=== PATIENT | male | born 1995 | race Caucasian/White ===

== ENCOUNTER → 2016-08-29 | Outpatient (CLI) | payer BC | END | disposition home or self-care (01) | LOC: MW.RT 13:33 | CPT/HCPCS: 93270 ==

== ENCOUNTER 2017-01-11 12:43 | Emergency (ER) | payer BC ==
--- NOTE | 2017-01-11 12:47 | EDM.PDOC ---
ED HPI GENERAL MEDICAL PROBLEM - General Stated Complaint: COUGH Time Seen by Provider: 01/11/17 12:47 Source of Information: Reports: Patient - History of Present Illness INITIAL COMMENTS - FREE TEXT/NARRATIVE: HISTORY AND PHYSICAL: History of present illness: [] Patient has coughed for 2 days on awakening this morning he did have some trace blood in some phlegm/sputum, I blood noted in the nares. He had bloody nose while sleeping as a source from where the blood. Patient also sore throat for last 4 days No fever nausea vomiting chills sweats, no hot potato voice drooling or trismus Review of systems: As per history of present illness and below otherwise all systems reviewed and negative. Past medical history: As per history of present illness and as reviewed below otherwise noncontributory. Surgical history: As per history of present illness and as reviewed below otherwise noncontributory. Social history: No reported history of drug or alcohol abuse. Family history: As per history of present illness and as reviewed below otherwise noncontributory. Physical exam: HEENT: Atraumatic, normocephalic, pupils reactive, negative for conjunctival pallor or scleral icterus, mucous membranes moist, throat clear, neck supple, nontender, trachea midline. Moderate erythema no exudate Lungs: Clear to auscultation, breath sounds equal bilaterally, chest nontender. Heart: S1S2, regular, negative for clicks, rubs, or JVD. Abdomen: Soft, nondistended, nontender. Negative for masses or hepatosplenomegaly. Negative for costovertebral tenderness. Pelvis: Stable nontender. Genitourinary: Deferred. Rectal: Deferred. Extremities: Atraumatic, negative for cords or calf pain. Neurovascular unremarkable. Neuro: Awake, alert, oriented. Cranial nerves II through XII unremarkable. Cerebellum unremarkable. Motor and sensory unremarkable throughout. Exam nonfocal. Diagnostics: [] Chest x-ray Therapeutics: [] Z-Mina Impression: [] Acute bronchitis Acute pharyngitis Definitive disposition and diagnosis as appropriate pending reevaluation and review of above. Generalized Pain Score (Numeric/FACES): 4 - Related Data Allergies Allergy/AdvReac Type Severity Reaction Status Date / Time No Known Allergies Allergy Verified 01/11/17 12:51 Home Meds: Home Meds . [No Known Home Meds] 01/11/17 [History] ED ROS GENERAL - Review of Systems Review Of Systems: ROS reveals no pertinent complaints other than HPI. ED EXAM, GENERAL - Physical Exam Exam: See Below Course - Vital Signs Last Recorded V/S: Last Vital Signs Temp 36.8 C 01/11/17 12:48 Pulse 75 01/11/17 12:48 Resp 16 01/11/17 12:48 BP 152/80 H 01/11/17 12:48 Pulse Ox 98 01/11/17 12:48 - Orders/Labs/Meds Orders: Active Orders 24 hr Category Date Time Status Chest 2V [CR] Stat Exams 01/11/17 12:49 Taken Departure - Departure Time of Disposition: 13:23 Disposition: Home, Self-Care 01 Condition: good Clinical Impression: Acute bronchitis, Pharyngitis - Discharge Information Additional Instructions: Medication as prescribed Return if symptoms persist or worsen followup with primary care as needed The following information is given to patients seen in the emergency department who are being discharged to home. This information is to outline your options for follow-up care. We provide all patients seen in our emergency department with a follow-up referral. The need for follow-up, as well as the timing and circumstances, are variable depending upon the specifics of your emergency department visit. If you don't have a primary care physician on staff, we will provide you with a referral. We always advise you to contact your personal physician following an emergency department visit to inform them of the circumstance of the visit and for follow-up with them and/or the need for any referrals to a consulting specialist. The emergency department will also refer you to a specialist when appropriate. This referral assures that you have the opportunity for follow-up care with a specialist. All of these measure are taken in an effort to provide you with optimal care, which includes your follow-up. Under all circumstances we always encourage you to contact your private physician who remains a resource for coordinating your care. When calling for follow-up care, please make the office aware that this follow-up is from your recent emergency room visit. If for any reason you are refused follow-up, please contact the [facility] emergency department at and asked to speak to the emergency department charge nurse. - My Orders Last 24 Hours: My Active Orders 01/11/17 12:49 Chest 2V [CR] Stat - Assessment/Plan Last 24 Hours: My Active Orders 01/11/17 12:49 Chest 2V [CR] Stat
[2017-01-11 13:31] VITALS: BP 153/71
--- NOTE | 2017-01-14 11:12 | CR ---
EXAM DATE: 01/11/17 PATIENT'S AGE: 21 Patient: RADHA WANG Facility: [place], [place] Site . Site : 1995 Study: XRay Chest [id number]/27/2017 1:02:08 PM Ordering Physician: Doctor Menon Final Report: HISTORY: Cough for 3 days. Findings: Two views of the chest or provided. The lungs are normally expanded and clear. No pleural effusion or pneumothorax is seen. Cardiac silhouette size is within normal limits. Impression: Clear lungs. Dictated by Gurdeep Mayorga MD @ Jan 11 2017 1:11PM (Electronic Signature) Report Signed by Proxy. ASHLEY
== END 2017-01-11 13:30 | disposition home or self-care (01) ==
LOC: MW.ED 12:43
DX: J20.9 Acute bronchitis, unspecified (principal); J06.9 Acute upper respiratory infection, unspecified
CPT/HCPCS: 71020; 71020-26; 99283

== ENCOUNTER 2017-07-24 19:25 | Emergency (ER) | payer OTHER, BC ==
--- NOTE | 2017-07-24 19:47 | EDM.PDOC ---
ED HPI GENERAL MEDICAL PROBLEM - General Chief Complaint: Lower Extremity Injury/Pain Stated Complaint: POSSIBLE SPRAIN OR BREAK OF RIGHT ANKLE Time Seen by Provider: 07/24/17 19:45 Source of Information: Reports: Patient History Limitations: Reports: No Limitations - History of Present Illness INITIAL COMMENTS - FREE TEXT/NARRATIVE: HISTORY AND PHYSICAL: []21-year-old male presenting with right ankle pain History of Present Illness: []Patient was playing tennis and his ankle "stopped before the rest of his body " He then went to yoga and "stretched too much" Review of Systems: As per history of present illness and below otherwise all systems reviewed and negative. Past medical history: As per history of present illness and as reviewed below otherwise noncontributory. Surgical history: As per history of present illness and as reviewed below otherwise noncontributory. Social history: No reported history of drug or alcohol abuse. Family history: As per history of present illness and as reviewed below otherwise noncontributory. Physical exam: Alert and oriented young man who answers questions appropriately in full sentences without any shortness of breath HEENT: Atraumatic, normocehpalic, pupils reactive, negative for conjunctival pallor or scleral icterus, mucous membranes moist, throat clear, neck supple, nontender, trachea midline. Lungs: Clear to auscultation, breath sounds equal bilaterally, chest non tender. Heart: S1S2, regular, negative for clicks, rubs, or JVD. Abdomen: Soft, nondistended, nontender. Negative for masses or hepatossplenmegaly. Negative for costovertebral tenderness. Pelvis: Stable nontender. Genitourinary: Deferred. Rectal: Deferred Extremities: Mild edema to the lateral malleolus on the right ankle negative for cords or calf pain. Neurovascular unremarkable. Neuro: Awake, alert, oriented. Cranial nerves II through XII unremarkable. Cerebellum unremarkable. Motor and sensory unremarkable throughout. Exam nonfocal. Discussed with the patient and significant other that she does not have a fracture or dislocation there is a sprain. Which should improve over the next several days Diagnostics: [X-ray right ankle] Therapeutics: []Berhane wrap Impression: [Sprain right ankle] Plan: [Discharged to home May return to work tomorrow but no running for the next 2 days. Note has been written for work Ibuprofen for discomfort] Definitive disposition and diagnosis as appropriate pending reevaluation and review of above. Onset: Today, Sudden Location: Reports: Lower Extremity, Right Quality: Reports: Ache Severity: Severe Right Ankle Pain Score (Numeric/FACES): 9 - Related Data Allergies Allergy/AdvReac Type Severity Reaction Status Date / Time No Known Allergies Allergy Verified 07/24/17 19:39 Home Meds: Home Meds . [No Known Home Meds] 01/11/17 [History] Past Medical History - Past Health History Medical/Surgical History: Denies Medical/Surgical History HEENT History: Reports: None Cardiovascular History: Reports: None Respiratory History: Reports: None Gastrointestinal History: Reports: None Genitourinary History: Reports: None Musculoskeletal History: Reports: None Neurological History: Reports: None Psychiatric History: Reports: None Endocrine/Metabolic History: Reports: None Hematologic History: Reports: None Immunologic History: Reports: None Oncologic (Cancer) History: Reports: None Dermatologic History: Reports: None - Infectious Disease History Infectious Disease History: Reports: None - Past Surgical History Head Surgeries/Procedures: Reports: None HEENT Surgical History: Reports: Other (See Below) Other HEENT Surgeries/Procedures: jaw sx Cardiovascular Surgical History: Reports: None Musculoskeletal Surgical History: Reports: Other (See Below) Other Musculoskeletal Surgeries/Procedures:: jaw surgery Social & Family History - Family History Family Medical History: Noncontributory - Tobacco Use Smoking Status *Q: Never Smoker - Caffeine Use Caffeine Use: Reports: None - Recreational Drug Use Recreational Drug Use: No Review of Systems - Review of Systems Review Of Systems: ROS reveals no pertinent complaints other than HPI. ED EXAM, GENERAL - Physical Exam Exam: See Below (See dictation) Course - Vital Signs Last Recorded V/S: Last Vital Signs Temp 36.2 C 07/24/17 19:29 Pulse 91 07/24/17 19:29 Resp 18 07/24/17 19:29 BP 132/84 07/24/17 19:29 Pulse Ox 95 07/24/17 19:29 - Orders/Labs/Meds Orders: Active Orders 24 hr Category Date Time Status Ankle Min 3V Rt [CR] Stat Exams 07/24/17 19:27 Ordered Departure - Departure Time of Disposition: 20:02 Disposition: Home, Self-Care 01 Condition: Good Clinical Impression: Ankle sprain - Discharge Information Instructions: Ankle Sprain, [id number] Referrals: PCP,None [Primary Care Provider] - Forms: ED Department Discharge Additional Instructions: The following information is given to patients seen in the emergency department who are being discharged to home. This information is to outline your options for follow-up care. We provide all patients seen in our emergency department with a follow-up referral. The need for follow-up, as well as the timing and circumstances, are variable depending upon the specifics of your emergency department visit. If you don't have a primary care physician on staff, we will provide you with a referral. We always advise you to contact your personal physician following an emergency department visit to inform them of the circumstance of the visit and for follow-up with them and/or the need for any referrals to a consulting specialist. The emergency department will also refer you to a specialist when appropriate. This referral assures that you have the opportunity for followup care with a specialist. All of these measure are taken in an effort to provide you with optimal care, which includes your followup. Under all circumstances we always encourage you to contact your private physician who remains a resource for coordinating your care. When calling for followup care, please make the office aware that this follow-up is from your recent emergency room visit. If for any reason you are refused follow-up, please contact the [facility] emergency department at and asked to speak to the emergency department charge nurse. Note is been written for work no running for the next 2 days and then may gradually start to add activity Ibuprofen [id number] 3 tablets 3 times a day with food - My Orders Last 24 Hours: My Active Orders 07/24/17 19:27 Ankle Min 3V Rt [CR] Stat - Assessment/Plan Last 24 Hours: My Active Orders 07/24/17 19:27 Ankle Min 3V Rt [CR] Stat
[2017-07-24 20:18] VITALS: BP 142/81
--- NOTE | 2017-07-25 13:02 | CR ---
EXAM DATE: 07/24/17 PATIENT'S AGE: 22 Patient: RADHA WANG Facility: [place], [place] Site . Site : 1995 Study: XRay Extremity ankle [id number]/7/2017 7:45:52 PM Ordering Physician: Doctor Menon Final Report: INDICATION: sports injury TECHNIQUE: Three views of the right ankle COMPARISON: None FINDINGS: Bones: No fractures or bone lesions. Joint spaces: Unremarkable. Soft tissues: Lateral malleolar soft tissue swelling. IMPRESSION: Lateral malleolar soft tissue swelling. No acute bony abnormality Dictated by Andrés Bruner MD @ 07/24/2017 7:55:55 PM Dictated by: Andrés Bruner MD @ 07/24/2017 19:56:00 (Electronic Signature) Report Signed by Proxy. [facility]
== END 2017-07-24 20:10 | disposition home or self-care (01) ==
LOC: MW.ED 19:25
DX: S93.401A Sprain of unspecified ligament of right ankle, initial encounter (principal); X50.1XXA Overexertion from prolonged static or awkward postures, initial encounter; Y93.73 Activity, racquet and hand sports
CPT/HCPCS: 73610-26-RT; 73610-RT; 99282; 99283

== ENCOUNTER 2018-12-15 21:45 | Emergency (ER) | payer BC, OTHER ==
[2018-12-15] MEDS ORDERED: Ketorolac 60 MG/2 ML SDV IM ONE (22:03)
[2018-12-15 23:00] LABS: CHLORIDE,CL 101 mmol/L (98-107); SODIUM,NA 140 mmol/L (136-148)
--- NOTE | 2018-12-15 23:22 | EDM.PDOC ---
ED HPI GENERAL MEDICAL PROBLEM - General Chief Complaint: General Stated Complaint: BACK PAIN Time Seen by Provider: 12/15/18 23:18 Source of Information: Reports: Patient - History of Present Illness INITIAL COMMENTS - FREE TEXT/NARRATIVE: HISTORY AND PHYSICAL: History of present illness: [] presents with left-sided back pain 6 out of 10 radiating around the left flank worsened by movement better at rest, had pain intermittently light pain for 1 week playing volleyball tonight after diving for a ball increased pain noted no apparent distress however uncomfortable on exam No footdrop saddle anesthesia bowel or urine symptoms Review of systems: As per history of present illness and below otherwise all systems reviewed and negative. Past medical history: As per history of present illness and as reviewed below otherwise noncontributory. Surgical history: As per history of present illness and as reviewed below otherwise noncontributory. Social history: No reported history of drug or alcohol abuse. Family history: As per history of present illness and as reviewed below otherwise noncontributory. Physical exam: HEENT: Atraumatic, normocephalic, pupils reactive, negative for conjunctival pallor or scleral icterus, mucous membranes moist, throat clear, neck supple, nontender, trachea midline. Lungs: Clear to auscultation, breath sounds equal bilaterally, chest nontender. Heart: S1S2, regular, negative for clicks, rubs, or JVD. Abdomen: Soft, nondistended, nontender. Negative for masses or hepatosplenomegaly. Negative for costovertebral tenderness. Pelvis: Stable nontender. Genitourinary: Deferred. Rectal: Deferred. Extremities: Atraumatic, negative for cords or calf pain. Neurovascular unremarkable. Neuro: Awake, alert, oriented. Cranial nerves II through XII unremarkable. Cerebellum unremarkable. Motor and sensory unremarkable throughout. Exam nonfocal. no footdrop or saddle anesthesia Diagnostics: [] lumbar spine Therapeutics: [] Toradol 60 IM Toradol 10 mg by mouth daily #15 no refill Flexeril 10 mg by mouth 3 times a day when necessary not to use while driving or work no alcohol with this medication Tear ice whichever gains most benefit Impression: [ paraspinous muscle spasm ] Definitive disposition and diagnosis as appropriate pending reevaluation and review of above. Left Chest Pain Score (Numeric/FACES): 7 - Related Data Allergies Allergy/AdvReac Type Severity Reaction Status Date / Time No Known Allergies Allergy Verified 12/15/18 22:06 Home Meds: Home Meds . [No Known Home Meds] 01/11/17 [History] Past Medical History - Past Health History Medical/Surgical History: Denies Medical/Surgical History HEENT History: Reports: None Cardiovascular History: Reports: None Respiratory History: Reports: None Gastrointestinal History: Reports: None Genitourinary History: Reports: None Musculoskeletal History: Reports: None Neurological History: Reports: None Psychiatric History: Reports: None Endocrine/Metabolic History: Reports: None Hematologic History: Reports: None Immunologic History: Reports: None Oncologic (Cancer) History: Reports: None Dermatologic History: Reports: None - Infectious Disease History Infectious Disease History: Reports: None - Past Surgical History Head Surgeries/Procedures: Reports: None HEENT Surgical History: Reports: Other (See Below) Other HEENT Surgeries/Procedures: jaw sx Cardiovascular Surgical History: Reports: None Musculoskeletal Surgical History: Reports: Other (See Below) Other Musculoskeletal Surgeries/Procedures:: jaw surgery Social & Family History - Family History Family Medical History: Noncontributory - Tobacco Use Smoking Status *Q: Never Smoker Second Hand Smoke Exposure: No - Caffeine Use Caffeine Use: Reports: None - Recreational Drug Use Recreational Drug Use: No ED ROS GENERAL - Review of Systems Review Of Systems: See Below ED EXAM, GENERAL - Physical Exam Exam: See Below Course - Vital Signs Last Recorded V/S: Last Vital Signs Temp 98.1 F 12/15/18 22:03 Pulse 83 12/15/18 22:03 Resp 20 12/15/18 22:03 BP 150/70 H 12/15/18 22:03 Pulse Ox 98 12/15/18 22:03 - Orders/Labs/Meds Orders: Active Orders 24 hr Category Date Time Status Lumbar Spine 2 or 3V [CR] Stat Exams 12/15/18 22:04 Taken Labs: Laboratory Tests 12/15/18 12/15/18 12/15/18 Range/Units 22:15 22:23 22:59 WBC 7.52 (4.0-11.0) K/uL RBC 5.53 (4.50-5.90) M/uL Hgb 16.2 (13.0-17.0) g/dL Hct 47.2 (38.0-50.0) % MCV 85.4 (80.0-98.0) fL MCH 29.3 (27.0-32.0) pg MCHC 34.3 (31.0-37.0) g/dL RDW Std Deviation 41.4 (28.0-62.0) fl RDW Coeff of Raven 13 (11.0-15.0) % Plt Count 179 (150-400) K/uL MPV 10.90 (7.40-12.00) fL Neut % (Auto) 62.4 (48.0-80.0) % Lymph % (Auto) 24.2 (16.0-40.0) % Bonner % (Auto) 12.1 (0.0-15.0) % Eos % (Auto) 0.9 (0.0-7.0) % Baso % (Auto) 0.4 (0.0-1.5) % Neut # (Auto) 4.7 (1.4-5.7) K/uL Lymph # (Auto) 1.8 (0.6-2.4) K/uL Bonner # (Auto) 0.9 H (0.0-0.8) K/uL Eos # (Auto) 0.1 (0.0-0.7) K/uL Baso # (Auto) 0.0 (0.0-0.1) K/uL Nucleated RBC % 0.0 /100WBC Nucleated RBCs # 0 K/uL Sodium 140 (136-148) mmol/L Potassium 4.2 (3.5-5.1) mmol/L Chloride 101 (98-107) mmol/L Carbon Dioxide 28.9 (21.0-32.0) mmol/L BUN 20 H (7.0-18.0) mg/dL Creatinine 1.4 H (0.8-1.3) mg/dL Est Cr Clr Drug Dosing 97.24 mL/min Estimated GFR (MDRD) > 60.0 ml/min Glucose 91 (74-106) mg/dL Calcium 9.6 (8.5-10.1) mg/dL Total Bilirubin 0.4 (0.2-1.0) mg/dL AST 28 (15-37) IU/L ALT 39 (14-63) IU/L Alkaline Phosphatase 76 (46-116) U/L Total Protein 8.2 (6.4-8.2) g/dL Albumin 4.4 (3.4-5.0) g/dL Globulin 3.8 (2.6-4.0) g/dL Albumin/Globulin Ratio 1.2 (0.9-1.6) Lipase 183 (73-393) U/L Urine Color YELLOW Urine Appearance CLEAR Urine pH 6.0 (5.0-8.0) Ur Specific [place] 1.025 (1.001-1.035) Urine Protein NEGATIVE (NEGATIVE) mg/dL Urine Glucose (UA) NEGATIVE (NEGATIVE) mg/dL Urine Ketones NEGATIVE (NEGATIVE) mg/dL Urine Occult Blood NEGATIVE (NEGATIVE) Urine Nitrite NEGATIVE (NEGATIVE) Urine Bilirubin SMALL H (NEGATIVE) Urine Ictotest NEGATIVE Urine Urobilinogen 0.2 (<2.0) EU/dL Ur Leukocyte Esterase NEGATIVE (NEGATIVE) Meds: Medications Discontinued Medications Generic Name Dose Route Start Last Admin Trade Name Freq PRN Reason Stop Dose Admin Ketorolac Tromethamine 60 mg 12/15/18 22:03 12/15/18 22:22 Toradol IM 12/15/18 22:04 60 mg ONETIME ONE Administration Departure - Departure Time of Disposition: 23:20 Disposition: Home, Self-Care 01 Condition: Good Clinical Impression: Paraspinal muscle spasm - Discharge Information Referrals: PCP,None [Primary Care Provider] - Additional Instructions: Medication as prescribed Return if symptoms persist or worsen Follow-up with primary care in 2 weeks sooner as needed Ice for the first 48 hours 3 times daily then heat whichever gains most benefit Icy hot patches may benefit while at work Concerning medications: Toradol may be taken while at work only for 5 consecutive days, bupropion thereafter Flexeril also known as cyclobenzaprine can be used at home but not well driving not while at work no alcohol with this medication [facility] [address] [place] [address] The following information is given to patients seen in the emergency department who are being discharged to home. This information is to outline your options for follow-up care. We provide all patients seen in our emergency department with a follow-up referral. The need for follow-up, as well as the timing and circumstances, are variable depending upon the specifics of your emergency department visit. If you don't have a primary care physician on staff, we will provide you with a referral. We always advise you to contact your personal physician following an emergency department visit to inform them of the circumstance of the visit and for follow-up with them and/or the need for any referrals to a consulting specialist. The emergency department will also refer you to a specialist when appropriate. This referral assures that you have the opportunity for follow-up care with a specialist. All of these measure are taken in an effort to provide you with optimal care, which includes your follow-up. Under all circumstances we always encourage you to contact your private physician who remains a resource for coordinating your care. When calling for follow-up care, please make the office aware that this follow-up is from your recent emergency room visit. If for any reason you are refused follow-up, please contact the [facility] emergency department at and asked to speak to the emergency department charge nurse. - My Orders Last 24 Hours: My Active Orders 12/15/18 22:04 Lumbar Spine 2 or 3V [CR] Stat - Assessment/Plan Last 24 Hours: My Active Orders 12/15/18 22:04 Lumbar Spine 2 or 3V [CR] Stat
[2018-12-15 23:32] VITALS: BP 117/72
--- NOTE | 2018-12-16 14:05 | CR ---
EXAM DATE: 12/15/18 PATIENT'S AGE: 23 Patient: RADHA WANG Facility: [facility] [place] Site . Site : 1995 Study: XRay-Spine Lumbar [id number]/30/2019 10:58:11 PM Ordering Physician: Doctor Menon Final Report: HISTORY: Back pain. COMPARISON: Previous report of standing thoracic and lumbar spine from 08/27/2016 FINDINGS: The lumbar spine was examined with AP, lateral, and lateral spot views for a total of three views. There is no sign of fracture or subluxation. The vertebral bodies are normal in height and they are in anatomic alignment. The disc spaces are normal in height as well. The visualized bony pelvis and bowel gas pattern are normal in appearance. There is no change compared to the previous report. IMPRESSION: Normal lumbar spine. Dictated by Moris Leroy MD @ Dec 15 2018 11:29PM Signed by: Moris Leroy MD @12/15/2018 11:31:22 PM (Electronic Signature) Report Signed by Proxy. ASHLEY
== END 2018-12-15 23:55 | disposition home or self-care (01) ==
LOC: MW.ED 21:45
DX: M62.830 Muscle spasm of back (principal)
CPT/HCPCS: 36415; 72100; 80053; 81003; 83690; 85025; 96372; 99283; J1885; J2360

== ENCOUNTER 2021-01-03 17:18 | Emergency (ER) | payer OTHER, BC ==
--- NOTE | 2021-01-03 17:32 | EDM.PDOC ---
ED HPI GENERAL MEDICAL PROBLEM - General Stated Complaint: HIT LFT ANKLE WITH HAMMER CLAW Time Seen by Provider: 01/03/21 17:31 Source of Information: Reports: Patient History Limitations: Reports: No Limitations - History of Present Illness INITIAL COMMENTS - FREE TEXT/NARRATIVE: HISTORY AND PHYSICAL: History of present illness: Patient is a 25-year-old male who presents to the emergency room with complaints of a laceration to his left ankle. He was using a hatchet when the blunt and hit him in the ankle resulting in injury and laceration. He denies any other bodily injury. He was ambulatory into the emergency room. Offers no systemic complaints and tetanus is up-to-date less than 5 years. Review of systems: As per history of present illness and below otherwise all systems reviewed and n egative. Past medical history: As per history of present illness and as reviewed below otherwise noncontributory. Surgical history: As per history of present illness and as reviewed below otherwise noncontributory. Social history: See social history for further information Family history: As per history of present illness and as reviewed below otherwise noncontributory. Physical exam: General: Well developed and well nourished. Alert and orientated x 3. Nontoxic in appearance and in no acute distress. Vital signs are stable and have been reviewed by me. Nursing notes were reviewed. HEENT: Atraumatic, normocephalic, pupils equal and reactive bilaterally, negative for conjunctival pallor or scleral icterus, mucous membranes moist, TMs normal bilaterally, throat clear, neck supple, nontender, trachea midline. No drooling or trismus noted. No meningeal signs. No hot potato voice noted. Lungs: Clear to auscultation bilaterally. No wheezes, rales, or rhonchi. Chest nontender. Normal work of breathing, no accessory muscles used. Heart: S1S2, regular rate and rhythm without overt murmur, gallops, or rubs. No JVD. No peripheral edema Abdomen: Soft, nondistended, nontender. Normoactive bowel sounds. Negative for masses or costovertebral tenderness. Pelvis: Stable nontender. Genitourinary/Rectal: Deferred. Skin: Intact, warm, dry. No lesions or rashes noted. Hematologic: No petechiae or purpra. Mucosa appropriate color and normal nail bed color and refill. Extremities: 2.5 cm laceration to left medial ankle with mild soft tissue swelling noted and malleolus tenderness. He moves all extremities per self without difficulty or deficits, negative for cords or calf pain. Achilles is intact. Strong pedal and pretibial pulses. + neurovascular unremarkable. Neuro: Awake, alert, oriented. Cranial nerves II through XII unremarkable. Cerebellum unremarkable. Motor and sensory unremarkable throughout. Exam nonfocal. Psychiatric: Mood and affect are appropriate. Normal thought process. Answering questions appropriately. Notes: *This patient was seen and evaluated during the 2019 SARS-CoV-2 novel coronavirus pandemic period. Community viral transmission is ongoing at time of this encounter and the emergency department is operating under pandemic response procedures. 1% lidocaine was used to anesthetize the area. Laceration was thoroughly cleansed with chlorhexidine and wound wash. 4-0 nylon, #4 interrupted sutures were placed. Patient tolerated well. Bacitracin nonstick dressing applied. X- ray shows no acute findings. I have talked with the patient about today's findings, in addition to providing specific details for plan of care. Reassessment at the time of disposition demonstrates that the patient is in no acute distress. The patient is stable for discharge, counseling was provided and we discussed in great detail signs and symptoms that would prompt them to return to the Emergency Department. Medication, follow up and supportive care measures were reviewed and discussed. Voices understanding and is agreeable to plan of care. Denies any further questions or concerns at this time. Diagnostics: Ankle x-ray Therapeutics: Lidocaine, bacitracin Prescription: None Impression: Left ankle crush injury Laceration Plan: 1. Rest, ice, elevate the extremity as able. Keep the area clean and dry. Continue to monitor for signs of infection. Sutures to be removed in 7-10 days. 2. Tylenol and/or ibuprofen as needed for pain management. 3. Please follow-up with your primary care provider in the next 1-2 days. Return to the ED as needed and as discussed. Definitive disposition and diagnosis as appropriate pending reevaluation and review of above. left lower leg Pain Score (Numeric/FACES): 3 - Related Data Allergies Allergy/AdvReac Type Severity Reaction Status Date / Time No Known Allergies Allergy Verified 01/03/21 17:41 Home Meds: Home Meds . [No Known Home Meds] 01/11/17 [History] Past Medical History - Past Health History Medical/Surgical History: Denies Medical/Surgical History HEENT History: Reports: None Cardiovascular History: Reports: None Respiratory History: Reports: None Gastrointestinal History: Reports: None Genitourinary History: Reports: None Musculoskeletal History: Reports: None Neurological History: Reports: None Psychiatric History: Reports: None Endocrine/Metabolic History: Reports: None Hematologic History: Reports: None Immunologic History: Reports: None Oncologic (Cancer) History: Reports: None Dermatologic History: Reports: None - Infectious Disease History Infectious Disease History: Reports: None - Past Surgical History Head Surgeries/Procedures: Reports: None HEENT Surgical History: Reports: Other (See Below) Other HEENT Surgeries/Procedures: jaw sx Cardiovascular Surgical History: Reports: None Musculoskeletal Surgical History: Reports: Other (See Below) Other Musculoskeletal Surgeries/Procedures:: jaw surgery Social & Family History - Family History Family Medical History: No Pertinent Family History - Caffeine Use Caffeine Use: Reports: None Review of Systems - Review of Systems Review Of Systems: Comprehensive ROS is negative, except as noted in HPI. ED EXAM, GENERAL - Physical Exam Exam: See Below (See dictation) ED TRAUMA EXTREMITY PROCEDURES - Laceration/Wound Repair Left ankle Lac/Wound Length In cm: 2.5 Appearance: Subcutaneous Distal NVT: Neuro & Vascular Intact, No Tendon Injury Anesthetic Type: Local Local Anesthesia - Lidocaine (Xylocaine): 1% Plain Local Anesthetic Volume: 2cc Skin Prep: Chlorhexidine (Hibiciens), Saline, Sterile Drape Saline Irrigation (cc's): 250 Exploration/Debridement/Repair: Wound Explored, In a Bloodless Field, Explored to Base, No Foreign Material Found Closed With: Sutures Suture Size: 4-0 # of Sutures: 4 Suture Type: Interrupted, Simple Course - Vital Signs Last Recorded V/S: Last Vital Signs Temp 98.0 F 01/03/21 18:46 Pulse 79 01/03/21 18:46 Resp 20 01/03/21 17:34 BP 135/85 01/03/21 18:46 Pulse Ox 98 01/03/21 18:46 - Orders/Labs/Meds Meds: Medications Discontinued Medications Generic Name Dose Route Start Last Admin Trade Name Freq PRN Reason Stop Dose Admin Bacitracin 1 dose 01/03/21 17:35 01/03/21 17:43 Bacitracin Oint 1 Gm U/D Packet TOP 01/03/21 17:36 1 dose ONETIME ONE Administration Lidocaine HCl 2 ml 01/03/21 17:35 01/03/21 17:43 Lidocaine 1% Pf 2 Ml Sdv INJECT 01/03/21 17:36 2 ml ONETIME ONE Administration Departure - Departure Time of Disposition: 18:15 Disposition: Against Medical Advice 07 Clinical Impression: Laceration Crush injury, ankle Qualifiers: Encounter type: initial encounter Laterality: left Qualified Code(s): S97.02XA - Crushing injury of left ankle, initial encounter - Discharge Information Referrals: PCP,None [Primary Care Provider] - Forms: ED Department Discharge Additional Instructions: The following information is given to patients seen in the emergency department who are being discharged to home. This information is to outline your options for follow-up care. We provide all patients seen in our emergency department with a follow-up referral. The need for follow-up, as well as the timing and circumstances, are variable depending upon the specifics of your emergency department visit. If you don't have a primary care physician on staff, we will provide you with a referral. We always advise you to contact your personal physician following an emergency department visit to inform them of the circumstance of the visit and for follow-up with them and/or the need for any referrals to a consulting specialist. The emergency department will also refer you to a specialist when appropriate. This referral assures that you have the opportunity for follow-up care with a specialist. All of these measure are taken in an effort to provide you with optimal care, which includes your follow-up. Under all circumstances we always encourage you to contact your private physician who remains a resource for coordinating your care. When calling for follow-up care, please make the office aware that this follow-up is from your recent emergency room visit. If for any reason you are refused follow-up, please contact the Emergency Department at and asked to speak to the emergency department charge nurse. Primary Care [address] [place] [address] [id number] [address] [address] Thank you for choosing the [facility] emergency department in [place] for your medical needs today. It was a pleasure caring for you. Today you were seen in the emergency department for ankle injury with laceration. 1. Rest, ice, elevate the extremity as able. Keep the area clean and dry. Continue to monitor for signs of infection. Sutures to be removed in 7-10 days. 2. Tylenol and/or ibuprofen as needed for pain management. 3. Please follow-up with your primary care provider in the next 1-2 days. Return to the ED as needed and as discussed. Sepsis Event Note (ED) - Focused Exam Vital Signs: Vital Signs Temp Pulse Resp BP Pulse Ox 01/03/21 18:46 98.0 F 79 135/85 98 01/03/21 17:34 98.0 F 92 20 139/91 H 98
[2021-01-03] MEDS ORDERED: Bacitracin Oint 1 GM U/D Packet TOP ONE (17:35)
[2021-01-03] MEDS ORDERED: Lidocaine 1% PF 2 ML SDV INJECT ONE (17:35)
[2021-01-03 18:46] VITALS: BP 135/85; PULSE 79
--- NOTE | 2021-01-03 19:19 | CR ---
INDICATION: Trauma. Pain. TECHNIQUE: Three views of the left ankle. FINDINGS: No acute fracture or dislocation. The tibiotalar joint space is intact. Questionable air in the soft tissues along the posterior medial aspect of the ankle. Please correlate clinically the exact site of trauma. IMPRESSION: No acute fracture or acute malalignment of the left ankle. Dictated by Brian Roberson MD @ 01/03/2021 7:19:[address] Brian Roberson @ Jan 03 2021 7:19PM
== END 2021-01-03 18:49 | disposition left against medical advice (07) ==
LOC: MW.ED 17:18
DX: S97.02XA Crushing injury of left ankle, initial encounter (principal); S91.012A Laceration without foreign body, left ankle, initial encounter; W22.8XXA Striking against or struck by other objects, initial encounter
CPT/HCPCS: 12001; 73610-26-LT; 73610-LT; 99283; 99283-25

== ENCOUNTER 2022-01-06 13:40 | Emergency (ER) | payer OTHER, BC ==
[2022-01-06 13:58] VITALS: BP 140/93; PULSE 86
[2022-01-06] MEDS ORDERED: Lidocaine 1% PF 2 ML SDV INJECT ONE (14:06)
[2022-01-06] MEDS ORDERED: Bacitracin Oint 1 GM U/D Packet TOP ONE (14:06)
== END 2022-01-06 15:37 | disposition home or self-care (01) ==
LOC: MW.ED 13:40
DX: S01.81XA Laceration without foreign body of other part of head, initial encounter (principal); Z86.16 Personal history of COVID-19; W28.XXXA Contact with powered lawn mower, initial encounter
CPT/HCPCS: 12011; 70486; 70486-26; 99282; 99283-25

== ENCOUNTER 2022-01-24 08:19 | Emergency (ER) | payer OTHER, BC ==
[2022-01-24] MEDS ORDERED: Tetracaine HCl/PF 0.5% 4 ML Bottle EYEBOTH STA (08:30)
[2022-01-24 10:35] VITALS: BP 130/70; PULSE 72
== END 2022-01-24 10:25 | disposition home or self-care (01) ==
LOC: MW.ED 08:19
DX: T15.91XA Foreign body on external eye, part unspecified, right eye, initial encounter (principal); Z79.899 Other long term (current) drug therapy; Z86.16 Personal history of COVID-19
CPT/HCPCS: 99283

== ENCOUNTER 2023-02-27 00:35 | Emergency (ER) | payer OTHER, BC ==
[2023-02-27] MEDS ORDERED: HYDROmorphone 1 MG/ML Syringe IVPUSH ONE (02:19)
[2023-02-27] MEDS ORDERED: Ondansetron 4 MG/2 ML SDV IVPUSH ONE (02:19)
[2023-02-27] MEDS ORDERED: Ketorolac 30 MG/ML SDV IVPUSH ONE (02:19)
[2023-02-27] MEDS ORDERED: Sodium Chloride 0.9% 1,000 ML IV ONE (02:19)
[2023-02-27] MEDS ORDERED: Sulfamethoxazole/Trimethoprim 800-160 MG Tab PO ONE (03:04)
[2023-02-27] MEDS ORDERED: Cephalexin 500 MG Cap PO ONE (03:04)
[2023-02-27 03:11] LABS: BASOPHILS PERCENT AUTO 0.2 % (0.0-1.5); EOSINOPHILS PERCENT AUTO 0.2 % (0.0-7.0); HEMATOCRIT 46.1 % (38.0-50.0); LYMPHOCYTES ABSOLUTE AUTO 0.4 K/uL (0.6-2.4); LYMPHOCYTES PERCENT AUTO 6.8 % (16.0-40.0); MEAN CORPUSCULAR HEMOGLOBIN 28.9 pg (27.0-32.0); MEAN CORPUSCULAR HGB CONC 34.7 g/dL (31.0-37.0); MEAN CORPUSCULAR VOLUME 83.2 fL (80.0-98.0); MONOCYTES ABSOLUTE AUTO 0.1 K/uL (0.0-0.8); MONOCYTES PERCENT AUTO 1.3 % (0.0-15.0); NEUTROPHILS ABSOLUTE AUTO 4.8 K/uL (1.4-5.7); NEUTROPHILS PERCENT AUTO 91.5 % (48.0-80.0); NRBC ABSOLUTE 0 K/uL; PLATELET COUNT,PLT 142 K/uL (150-400); RED BLOOD CELL COUNT 5.54 M/uL (4.50-5.90); WHITE BLOOD CELL COUNT,WBC 5.28 K/uL (4.0-11.0)
[2023-02-27 03:17] LABS: APPEARANCE,URINE CLEAR; BILIRUBIN,URINE NEGATIVE (NEGATIVE); COLOR,URINE YELLOW; GLUCOSE,URINE NEGATIVE (NEGATIVE); KETONES,URINE NEGATIVE (NEGATIVE); LEUKOCYTE ESTERASE,URINE NEGATIVE (NEGATIVE); NITRITE,URINE NEGATIVE (NEGATIVE); OCCULT BLOOD,URINE NEGATIVE (NEGATIVE); PROTEIN,URINE NEGATIVE (NEGATIVE); UROBILINOGEN,URINE 0.2 EU/dL (<2.0)
[2023-02-27] MEDS ORDERED: Acetaminophen 500 MG Tab PO ONE (03:22)
[2023-02-27 03:29] LABS: BACTERIA,URINE RARE (NEGATIVE); EPITHELIAL CELLS,URINE RARE (NONE-FEW); RBC,URINE 0-1 (0-2/HPF); WBC,URINE 0-1 (0-5/HPF)
[2023-02-27 03:34] LABS: A/G RATIO 1.2 (0.9-1.6); BILIRUBIN TOTAL 0.7 mg/dL (0.2-1.0); CALCIUM 8.5 mg/dL (8.5-10.1); CREATININE 1.3 mg/dL (0.8-1.3); EST CRCL DRUG DOSING (CG) 101.11 mL/min; POTASSIUM,K 3.6 mmol/L (3.5-5.1); PROTEIN TOTAL,TP 7.4 g/dL (6.4-8.2)
[2023-02-27] MEDS ORDERED: Iopamidol 755 MG/ML 500 ML Multipack Bottle IVPUSH ONE (03:48)
[2023-02-27 04:01] VITALS: BP 125/72; PULSE 95
== END 2023-02-27 05:34 | disposition home or self-care (01) ==
LOC: MW.ED 00:35
DX: L03.315 Cellulitis of perineum (principal); Z86.16 Personal history of COVID-19
CPT/HCPCS: 36415; 56405; 74177; 80053; 81001; 83690; 85025; 96361; 96374; 96375; 99284; A9270; J1885; J2405; J7030; Q9967; 10060

== ENCOUNTER 2024-07-30 20:09 | Emergency (ER) | payer OTHER, BC ==
[2024-07-30] MEDS ORDERED: Lidocaine 1% 5 ML VIAL INJECT ONE (20:13)
[2024-07-30] MEDS ORDERED: Diphtheria,Pertussis(Acell),Tetanus Vaccine 0.5 ML Syringe IM ONE (20:13)
[2024-07-30 20:51] VITALS: BP 149/89; PULSE 79
== END 2024-07-30 20:54 | disposition home or self-care (01) ==
LOC: MW.ED 20:09
DX: S61.211A Laceration without foreign body of left index finger without damage to nail, initial encounter (principal); W26.0XXA Contact with knife, initial encounter; Z75.8 Other problems related to medical facilities and other health care
CPT/HCPCS: 12001; 99282

== ENCOUNTER 2024-09-14 12:43 | Emergency (ER) | payer OTHER ==
[2024-09-14] MEDS: Diphtheria,Pertussis(Acell),Tetanus Vaccine 0.5 ML Syringe IM ONE (13:36)
[2024-09-14] MEDS ORDERED: Rabies Immune Globulin/PF (HyperRAB) 300 UNIT/ML 1 ML SDV IM ONE (14:00)
[2024-09-14] MEDS ORDERED: Ibuprofen 600 MG Tab PO PRN (14:01)
[2024-09-14] MEDS ORDERED: Acetaminophen 500 MG Tab PO PRN (14:01)
[2024-09-14] MEDS: Rabies Vaccine (Avian) 2.5 Unit Inj Kit IM ONE (14:36)
[2024-09-14] MEDS: Rabies Immune Globulin/PF (HyperRAB) 300 UNIT/ML 5 ML SDV IM ONE (14:38)
[2024-09-14] MEDS: Bacitracin Oint 1 GM U/D Packet TOP ONE (14:58)
[2024-09-14 15:23] VITALS: BP 159/87; PULSE 100
== END 2024-09-14 15:24 | disposition home or self-care (01) ==
LOC: MW.ED 12:43
DX: S81.852A Open bite, left lower leg, initial encounter (principal); Z23 Encounter for immunization; W54.0XXA Bitten by dog, initial encounter
CPT/HCPCS: 90375; 90471; 90675; 90715; 96372; 99283-25

== ENCOUNTER 2024-09-23 20:48 | Emergency (ER) | payer OTHER, BC ==
[2024-09-23] MEDS: Ondansetron 4 MG Tab.DIS PO ONE (22:49)
[2024-09-23] MEDS: Acetaminophen 500 MG Tab PO ONE (22:50)
[2024-09-23] MEDS: Ibuprofen 600 MG Tab PO ONE (22:50)
[2024-09-23] MEDS: Sodium Chloride 0.9% 1,000 ML IV ONE ×2 (23:12→23:13)
[2024-09-23 23:23] LABS: BASOPHILS ABSOLUTE AUTO 0.03 K/uL (0.00-0.20); BASOPHILS PERCENT AUTO 0.5 % (0.0-1.0); EOSINOPHILS ABSOLUTE AUTO 0.01 K/uL (0.00-0.45); EOSINOPHILS PERCENT AUTO 0.2 % (0.0-6.0); HEMATOCRIT 46.3 % (42.0-52.0); HEMOGLOBIN 15.9 g/dL (14.0-18.0); IMMATURE GRAN ABSOLUTE AUTO 0.02 K/uL (0.00-0.05); IMMATURE GRAN PERCENT AUTO 0.3 % (0.0-0.4); LYMPHOCYTES PERCENT AUTO 8.2 % (24.0-44.0); MEAN CORPUSCULAR HEMOGLOBIN 28.1 pg (28.0-32.0); MEAN CORPUSCULAR HGB CONC 34.3 g/dL (32.0-36.0); MEAN CORPUSCULAR VOLUME 81.8 fL (83.0-99.0); MEAN PLATELET VOLUME 10.4 fL (9.4-12.4); MONOCYTES ABSOLUTE AUTO 0.97 K/uL (0.00-0.80); NEUTROPHILS ABSOLUTE AUTO 4.54 K/uL (1.80-7.70); NEUTROPHILS PERCENT AUTO 74.8 % (41.0-71.0); PLATELET COUNT,PLT 147 K/uL (150-400); RED BLOOD CELL COUNT 5.66 M/uL (4.52-5.90); WHITE BLOOD CELL COUNT,WBC 6.07 K/uL (3.9-11.3)
[2024-09-24] LABS: A/G RATIO 1.1 (0.9-1.6); ALBUMIN 3.8 g/dL (3.4-5.0); BILIRUBIN TOTAL 0.6 mg/dL (0.2-1.0); CALCIUM 8.7 mg/dL (8.5-10.1); CARBON DIOXIDE,CO2 23.4 mmol/L (21.0-32.0); CREATININE 1.2 mg/dL (0.8-1.3); EST CRCL DRUG DOSING (CG) 107.58 mL/min; POTASSIUM,K 3.6 mmol/L (3.5-5.1); PROTEIN TOTAL,TP 7.4 g/dL (6.4-8.2)
[2024-09-24 01:38] VITALS: BP 115/65; PULSE 81
== END 2024-09-24 00:45 | disposition home or self-care (01) ==
LOC: MW.ED 20:48
DX: J10.1 Influenza due to other identified influenza virus with other respiratory manifestations (principal); E86.0 Dehydration; R05.9 Cough, unspecified; R07.81 Pleurodynia; R51.9 Headache, unspecified; Z79.899 Other long term (current) drug therapy
CPT/HCPCS: 36415; 71045; 80053; 83605; 83690; 85025; 87428; 87651; 96360; 99284; A9270; J7030